=== PATIENT | male | born 1930 | race Caucasian/White ===

== ENCOUNTER → 2016-11-08 | Outpatient (CLI) | payer OTHER | LOC: BHFA 13:00 | PROVIDERS: ATTEND Internal Medicine Cardiovascular Disease | DX: I50.23 Acute on chronic systolic (congestive) heart failure (principal); I25.810 Atherosclerosis of coronary artery bypass graft(s) without angina pectoris; I48.91 Unspecified atrial fibrillation; N18.9 Chronic kidney disease, unspecified; R53.83 Other fatigue; R06.02 Shortness of breath | CPT/HCPCS: 84481-90 ==

== ENCOUNTER → 2016-11-25 | Outpatient (CLI) | payer OTHER | LOC: BHFA 10:00 | PROVIDERS: ATTEND Internal Medicine Cardiovascular Disease | DX: I50.9 Heart failure, unspecified (principal) ==

== ENCOUNTER 2016-12-07 10:47 | Observation (INO) | payer OTHER ==
[2016-12-07] MEDS ORDERED: BACITRACIN IRRIGATION/NS 50,000 UNITS/1,000 ML BTL IRR ONE (11:13)
[2016-12-07] MEDS ORDERED: NS 1,000 ML IV ONE (11:13)
[2016-12-07] MEDS ORDERED: DIAZEPAM 5 MG TAB PO ONE (11:13)
[2016-12-07] MEDS ORDERED: diphenhydrAMINE 25 MG CAP PO ONE (11:13)
[2016-12-07] MEDS ORDERED: ceFAZolin 2 GM/DEXTROSE 100 ML IV ONE (11:13)
--- NOTE | 2016-12-07 11:35 | CPEKG ---
Heart Rate: 60 RR Interval: 1000 P-R Interval: 204 QRSD Interval: 156 QT Interval: 520 QTC Interval: 520 P [place]: 27 QRS [place]: -84 T Wave [place]: 90 EKG Severity - ABNORMAL ECG - EKG Impression: ATRIAL-VENTRICULAR DUAL-PACED RHYTHM Electronically Signed By: Jon Borrero 07-Dec-2016 13:13:49
[2016-12-07 11:51] LABS: % IMMATURE GRANULYOCYTES 0.5 % (0.0-1.1); ABSOLUTE IMMATURE GRANULOCYTES 0.03 10^3/uL (0.00-0.10); ADD DIFF? NO; ADD MORPH? NO; ADD SCAN? NO; ATYPICAL LYMPHOCYTE FLAG 0 (0-99); FRAGMENT RBC FLAG 0 (0-99); HEMATOCRIT 42.1 % (40.0-51.0); HEMOGLOBIN 13.8 g/dL (13.7-17.5); LEFT SHIFT FLG 10 (0-99); LIPEMIA HEMOLYSIS FLAG 80 (0-99); MEAN CELL HEMOGLOBIN 31.9 pg (27.9-34.1); MEAN CELL HEMOGLOBIN CONCENTR. 32.8 g/dL (32.4-36.7); MEAN CELL VOLUME 97.5 fL (81.5-99.8); MEAN PLATELET VOLUME 11.2 fL (8.7-11.7); PLATELET CLUMPS FLAG 0 (0-99); PLATELET COUNT 110 10^3/uL (150-400); RED BLOOD CELL COUNT 4.32 10^6/uL (4.40-6.38); RED CELL DISTRIBUTION WIDTH 14.5 % (11.5-15.2)
[2016-12-07] MEDS ORDERED: BUPIVACAINE 0.5% 30 ML SDV ONE (11:55)
[2016-12-07] MEDS ORDERED: LIDOCAINE 1% 300 MG/30 ML SDV ONE (11:55)
[2016-12-07] MEDS ORDERED: IOPAMIDOL (ISOVUE-300) 100 ML BTL ONE (11:55)
[2016-12-07 12:00] LABS: INR 1.18 (0.83-1.16)
[2016-12-07 12:08] LABS: ANION GAP 9 mEq/L (8-16); CALCIUM 9.1 mg/dL (8.5-10.4); CARBON DIOXIDE 23 mEq/l (22-31); CHLORIDE 107 mEq/L (97-110); CREATININE 1.3 mg/dL (0.7-1.3); GLOMERULAR FILTRATION RATE 52; GLUCOSE 90 mg/dL (70-100); POTASSIUM 5.1 mEq/L (3.5-5.2); SODIUM 139 mEq/L (134-144)
[2016-12-07] MEDS ORDERED: PROPOFOL/EMULSION 500 MG/50 ML BOTTLE IV ONE (13:04)
[2016-12-07] MEDS ORDERED: fentaNYL 100 MCG/2 ML INJ ONE (13:05)
[2016-12-07] MEDS ORDERED: DEXMEDETOMIDINE HCL 200 MCG/2 ML VIAL IV ONE (13:06)
[2016-12-07] MEDS ORDERED: MIDAZOLAM 2 MG/2 ML VIAL ONE (13:14)
--- NOTE | 2016-12-07 15:38 | EPPROC ---
Electrophysiology Procedure Note: PROCEDURE PERFORMED: 1. Upgrade of A-V ICD to A-BiV ICD 2. Subclavian vein angiography 3. Fluoroscopy INDICATION: Existing A-V ICD Cardiomyopathy, NYHA Class III, non paced QRS duration 135 ms PROCEDURE NOTE: Patient presented to the cardiac catheterization laboratory in a fasting, postabsorptive state. Dr. Anurag Brown administered sedation. The left infraclavicular area was prepped and draped in the usual sterile fashion. Lidocaine plus bupivacaine was used for local anesthesia. Left subclavian venography was performed by injection of iodinated contrast into the left antecubital vein. 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 A Magic Torque wire was placed into the subclavian vein and easily crossed the stenosis. Using a combination of blunt and sharp dissection and electrocautery, the dissection was carried down to the prepectoral fascia. The existing ICD pocket was exposed. The wire was moved inferiorly into the ICD pocket. All bleeding was controlled with electrocautery. Fluoroscopy was utilized during the entire procedure for venous access and placement of the leads. A purse string suture was applied around the guide wire. Diagnostic testing of the existing leads was performed. Upon cessation of pacing the patient had sinus rhythm, first degree AV block and QRS duration of 135 ms. After using 7 and 9 Fr dilators, a 9 [place] sheath was advanced over the guide wire into the subclavian vein. The coronary sinus ostium was engaged. Given renal insufficiency we used only 5 cc of contrast to confirm CS sheath placement. A coronary sinus quadrapolar lead was advanced into the coronary sinus. An angioplasty wire was advanced through the lead and advanced into the mid portion of the lateral branch of the coronary sinus. The lead was advanced over the angioplasty wire. Pacing threshold, sensing and impedance was determined. There was no diaphragmatic stimulation at maximum output. The delivery system and the 9 Fr sheath were peeled away. Again, pacing threshold, sensing and impedance was determined. There was no diaphragmatic stimulation at maximum output. The CS lead was secured to the prepectoral fascia with 3nonabsorbablesutures. The lead did move more proximally during sheath removal and the most proximal electrode of the lead is in the main body of the CS. Pacing threshold and sensing parameters of the RA and RV leads were checked again. The gauze packing was removed from the pacemaker pocket. The pocket was again inspected for any bleeding. The leads were attached to the pacemaker securely. The pacemaker was inserted into the pocket and secured in place with a nonabsorbable suture. Fluoroscopy was performed in [place] and PABLO planes to verify right sided placement of the RA and RV leads. Also fluoroscopy of the pacemaker pocket was performed. Defibrillation threshold testing was not performed. The pacemaker pocket was closed in 3 layers with absorbable monocryl sutures and deya. Appropriate dressing was applied. The patient left the cardiac catheterization laboratory in stable condition. Defibrillation testing: Not performed Serial Numbers: 1. Device SJM Quadra Assura MP [id number] CRTD SN [id number] 2. Atrial Lead BoSci (Biotronik) 4135 SN [id number] 3. Right Ventricular Lead Bosci 0185 SN [id number] 4. Left Ventricular Lead SJM 1457Q 75 cm SN [id number] Stimulation Thresholds & Impedance Measurements: 1. Atrial Lead 0.75 V 0.5 ms P 1 mV 510 ohm 2. Right Ventricular Lead 1.25 V 0.5 ms R 5.2 mV 450 ohm 3. Left Ventricular Lead 1.25 V 1 ms R 20.5 mV 670 ohm (standard bipolar). Proximal electrodes do cause diaphragmatic stimulation at max output Jagdish Pacing Parameters: 1. Pacing mode DDDR 2. Lower rate 60 ppm 3. Upper rate 130 ppm Tachycardia therapy parameters: VF zone : Detection 200 bpm First therapy ATP x 3 Subsequent therapies 36 then 40 Joule VT zone : Detection 160 bpm ATP x 3 Second therapy 36 Joule Subsequent therapies 40 Joule Patient Problems: Problems Problem Status Onset Cardiomyopathy Acute Near syncope Acute
--- NOTE | 2016-12-07 15:42 | CPEKG ---
Heart Rate: 60 RR Interval: 1000 P-R Interval: 118 QRSD Interval: 162 QT Interval: 536 QTC Interval: 536 P [place]: 0 QRS [place]: 223 T Wave [place]: -22 EKG Severity - ABNORMAL ECG - EKG Impression: ATRIAL-VENTRICULAR DUAL-PACED RHYTHM Electronically Signed By: Jon Borrero 07-Dec-2016 17:19:54
[2016-12-07] MEDS ORDERED: ACETAMINOPHEN 325 MG TAB PO PRN (17:26)
[2016-12-07] MEDS ORDERED: SACUBITRIL/VALSARTAN 24/26MG 1 EA TAB PO SCH (21:00)
[2016-12-08 03:56] LABS: % IMMATURE GRANULYOCYTES 0.4 % (0.0-1.1); ABSOLUTE IMMATURE GRANULOCYTES 0.03 10^3/uL (0.00-0.10); ADD DIFF? NO; ADD MORPH? NO; ADD SCAN? NO; ATYPICAL LYMPHOCYTE FLAG 20 (0-99); FRAGMENT RBC FLAG 0 (0-99); HEMATOCRIT 37.3 % (40.0-51.0); HEMOGLOBIN 12.4 g/dL (13.7-17.5); LEFT SHIFT FLG 10 (0-99); LIPEMIA HEMOLYSIS FLAG 80 (0-99); MEAN CELL HEMOGLOBIN 32.2 pg (27.9-34.1); MEAN CELL HEMOGLOBIN CONCENTR. 33.2 g/dL (32.4-36.7); MEAN CELL VOLUME 96.9 fL (81.5-99.8); MEAN PLATELET VOLUME 11.2 fL (8.7-11.7); PLATELET CLUMPS FLAG 10 (0-99); PLATELET COUNT 102 10^3/uL (150-400); RED BLOOD CELL COUNT 3.85 10^6/uL (4.40-6.38); RED CELL DISTRIBUTION WIDTH 14.4 % (11.5-15.2)
[2016-12-08 04:48] LABS: ANION GAP 8 mEq/L (8-16); CALCIUM 8.4 mg/dL (8.5-10.4); CARBON DIOXIDE 20 mEq/l (22-31); CHLORIDE 108 mEq/L (97-110); CREATININE 1.1 mg/dL (0.7-1.3); GLOMERULAR FILTRATION RATE > 60; GLUCOSE 87 mg/dL (70-100); SODIUM 136 mEq/L (134-144)
[2016-12-08 07:28] VITALS: RESP 16; O2SAT 93
[2016-12-08] MEDS ORDERED: SPIRONOLACTONE 25 MG TAB PO SCH (09:00)
[2016-12-08] MEDS ORDERED: AMIODARONE HCL 200 MG TAB PO SCH (09:00)
[2016-12-08] MEDS ORDERED: ASPIRIN 81 MG CHEWABLE TAB PO SCH (09:00)
[2016-12-08] MEDS ORDERED: METOPROLOL TARTRATE 25 MG TAB PO SCH (09:00)
[2016-12-08] MEDS ORDERED: ATORVASTATIN CALCIUM 10 MG TAB PO SCH (09:00)
--- NOTE | 2016-12-08 09:07 | CPEKG ---
Heart Rate: 60 RR Interval: 1000 P-R Interval: 121 QRSD Interval: 172 QT Interval: 544 QTC Interval: 544 P [place]: 0 QRS [place]: 235 T Wave [place]: 215 EKG Severity - ABNORMAL ECG - EKG Impression: ATRIAL-VENTRICULAR DUAL-PACED RHYTHM Electronically Signed By: Jon Borrero 08-Dec-2016 13:58:57
[2016-12-08 11:42] VITALS: BP 98/60; PULSE 61; TEMP 97.8
--- NOTE | 2016-12-08 13:52 | ECHO ---
[id number] + + [address] : : [place] [address] : : [phone] + + Adult Echocardiographic Report + ---+ :Name: GULSHAN GONZALEZ Ghassancatia Date: 12/08/2016 10:32 AM : : Hospital Admission Number: [id number] Location: 204: :: 1930 Gender: Male Height: 65 in : :Age: 86 yrs Race: WH Weight: 110 lb : :Reason For Study: Eval LV Fx : : BSA: 1.5 meters2 : :History: Post AICD murmur : + ---+ MMode/2D Measurements \T\ Calculations IVSd: 0.95 cm LVIDd: 5.7 cm FS: 27.6 % Ao root diam: 3.4 cm LVPWd: 1.1 cm LVIDs: 4.1 cm EDV(Teich): 157.9 ml ACS: 1.6 cm ESV(Teich): 74.3 ml EF(Teich): 52.9 % LVOT diam: 2.1 cm LVOT area: 3.5 cm2 Normal Measurement Values: + + :LVIDd (3.5-5.7cm) IVSd (0.6-1.1cm) LVPWd (0.6-1.1cm) Aortic Root (2.0-3.7cm)Left Atrium (1.5-4.0cm): :LV Vol(d) (76-115ml) LV Vol(s) (29-48ml) Ejec Fraction (50-65%)PV Francisco (0.6- 1.2m/s) TV Francisco (0.4-1.0m/s) : :MV E Francisco (0.8-1.0m/s)MV A Francisco (0.3-1.0m/s)LVOT Francisco (0.7-1.2m/s) Asc Ao Francisco ( 0.9-1.8m/s) : + + Doppler Measurements \T\ Calculations MV E max francisco: MV V2 max: LV V1 max: SV(LVOT): 44.4 cm/sec 60.8 cm/sec 65.2 cm/sec 46.2 ml MV A max francisco: MV max P.5 mmHg LV V1 max P.2 cm/sec MV V2 mean: 1.7 mmHg MV E/A: 0.76 38.9 cm/sec LV V1 mean PG: MV mean P.0 mmHg 0.67 mmHg LV V1 mean: MV V2 VTI: 21.3 cm 45.1 cm/sec LV V1 VTI: 13.3 cm MVA(VTI): 2.2 cm2 TR max francisco: 316.3 cm/sec TR max P.0 mmHg RAP systole: 5.0 mmHg RVSP(TR): 45.0 mmHg Left Ventricle The left ventricle is normal in size. There is normal left ventricular wall thickness. Ejection Fraction = 40-45%. There is inferoseptal, inferolateral and apical hypokinesis. Right Ventricle There is a pacemaker lead in the right ventricle. The right ventricle is normal size. The right ventricular systolic function is normal. Atria The left atrium is moderately dilated. The right atrium is mildly dilated. Mitral Valve There is no mitral valve stenosis. There is mild mitral regurgitation. Tricuspid Valve There is moderate tricuspid regurgitation. Right ventricular systolic pressure is 45mmHg. There is Doppler evidence for mild pulmonary hypertension. Aortic Valve There is mild aortic valve calcification. The aortic valve is trileaflet. There is no aortic stenosis. Mild to moderate aortic regurgitation. Pulmonic Valve The pulmonic valve is normal in structure and function. There is no pulmonic valvular regurgitation. Great Vessels The aortic root is normal size. Pericardium/Pleural There is no pericardial effusion. Conclusion A complete two-dimensional transthoracic echocardiogram was performed (2D, M-mode, Doppler and color flow Doppler). Ejection Fraction = 40-45%. There is inferoseptal, inferolateral and apical hypokinesis. There is a pacemaker lead in the right ventricle. The left atrium is moderately dilated. There is no mitral valve stenosis. There is mild mitral regurgitation. There is moderate tricuspid regurgitation. Right ventricular systolic pressure is 45mmHg. There is Doppler evidence for mild pulmonary hypertension. There is mild aortic valve calcification. The aortic valve is trileaflet. Mild to moderate aortic regurgitation. There is no pericardial effusion. There was a murmur heard on the right side. Doppler and colorflow doppler was performed with the leg cuffs inflated and deflated to obtain information on the tricuspid murmur. There was no noticable difference in the TR jet and the pacer lead remained stable and inplace during the cuff inflation. Compared with 07/10/2015, LV systolic function has improved. Degree of AR has progressed slightly Final Reading Physician: Dr Reena Milton electronically signed on 12/08/2016 01:51 PM Ordering Physician: Jon Borrero Performed By: Justin Meza, NAINCS
--- NOTE | 2016-12-09 04:51 | GDS ---
[f rep st] DISCHARGE SUMMARY ADMITTING DIAGNOSES: 1. Chronic systolic congestive heart failure, [place] [employer] Class III symptoms. 2. Previous ICD implanted. 3. Paroxysmal atrial fibrillation. 4. Chronic obstructive pulmonary disease. 5. Poliomyelitis. DISCHARGE DIAGNOSES: 1. Chronic systolic congestive heart failure, [place] [employer] Class III symptoms. 2. Previous ICD implanted. 3. Paroxysmal atrial fibrillation. 4. Chronic obstructive pulmonary disease. 5. Poliomyelitis. 6. Upgrade to biventricular ICD. BRIEF HISTORY: This is an 86-year-old man with a history of chronic systolic CHF with ejection fraction previously of 20% and [place] Heart [employer] class III symptoms with a QRS of 135 milliseconds. He had been in atrial flutter for 4 months previously. He had been experiencing increased CUEVAS. Recommendations were for upgrade to biventricular ICD. HOSPITAL COURSE: Dr. Borrero implanted a [employer] Quadra Assura MP biventricular ICD. The LV lead is a [employer] 1457Q. The previously placed right atrial and right ventricular leads are [employer]. Mode is DDDR with a base rate of 60 and upper rate of 130 beats per minute. Prior to discharge, atrial capture threshold was 0.5 V at 0.5 milliseconds with P waves of 1 mV and impedance 460 ohms. RV capture threshold was 1 V at 0.5 milliseconds, R wave 6.5 mV, impedance 480 ohms. LV capture threshold is 1.5 V at 0.5 milliseconds. This is the M2 to P4. Impedance is 660 ohms. Patient did well overnight. He denies any tenderness or pain at his ICD site. He denies shortness of breath or chest pain. In fact, he is feeling well today. He did not have any significant arrhythmias on the monitor. Chest x-ray demonstrated no pneumothorax. EKG demonstrates AV pacing at 60 beats per minute. LABORATORY DATA: WBC 7.85, hemoglobin 12.4, hematocrit 37.3, platelets 102, 000. PT 15, INR 1.18. Sodium 136, potassium 5.0, chloride 108, bicarb 20, BUN 24, creatinine 1.1, glucose 87. Echocardiogram: Ejection fraction increased to 40% to 45%. Mild MR. Moderate TR. Estimated RVSP is 45 mmHg. [id number] AI and no pericardial effusion. PHYSICAL EXAMINATION: VITAL SIGNS: Blood pressure is 89/53, pulse 60, respirations 16, temperature is 37.1, O2 saturation on room air is 93%. GENERAL : He is alert and oriented, in no acute distress, lying in bed. CARDIAC: Regular rate and rhythm with a 2/6 musical vibratory murmur at base, which was not heard later when he was sitting up in a chair. LUNGS: Have decreased breath sounds bilaterally at bases. ABDOMEN: Soft and nontender. PACEMAKER SITE: Gauze dressing is intact without dry blood. EXTREMITIES: Warm. No lower extremity edema. Left hand is chronically bluish purple. DISCHARGE MEDICATIONS: Please see discharge medication reconciliation form. Of note, he does take Xarelto half a tablet every other day, and he was instructed to resume that on the evening of the . DISCHARGE INSTRUCTIONS: Provided a written sheet for him with post pacemaker implant restrictions that were reviewed with patient and his . FOLLOWUP: He has a followup for a pacemaker check and wound check on 12/15 at 11 o'clock. He has a followup with Dr. De Anda on 12/31 at 9:30. /[id number]/MODL MTDD
== END 2016-12-08 16:06 | disposition home or self-care (01) ==
LOC: F2W 10:47 → UNDOADMOB 10:47 → FCATH 10:47 → EDSTATUS 13:00 → F2W 15:26
PROVIDERS: ADMIT Internal Medicine Cardiovascular Disease; ATTEND Internal Medicine Cardiovascular Disease
PROC: 0JPT3PZ Removal of Cardiac Rhythm Related Device from Trunk Subcutaneous Tissue and Fascia, Percutaneous Approach (ICD-10-PCS; principal; 2016-12-07)
PROC: 5A2204Z Restoration of Cardiac Rhythm, Single (ICD-10-PCS; principal; 2016-12-07)
PROC: 0JH639Z Insertion of Cardiac Resynchronization Defibrillator Pulse Generator into Chest Subcutaneous Tissue and Fascia, Percutaneous Approach (ICD-10-PCS; principal; 2016-12-07)
PROC: 02H43KZ Insertion of Defibrillator Lead into Coronary Vein, Percutaneous Approach (ICD-10-PCS; principal; 2016-12-07)
DX: I25.5 Ischemic cardiomyopathy (principal); I50.22 Chronic systolic (congestive) heart failure; I48.0 Paroxysmal atrial fibrillation; R55 Syncope and collapse; N18.9 Chronic kidney disease, unspecified; J44.9 Chronic obstructive pulmonary disease, unspecified; A80.9 Acute poliomyelitis, unspecified; I25.2 Old myocardial infarction; Z79.01 Long term (current) use of anticoagulants; Z85.46 Personal history of malignant neoplasm of prostate; Z82.49 Family history of ischemic heart disease and other diseases of the circulatory system; Z95.1 Presence of aortocoronary bypass graft
CPT/HCPCS: 33225; 33233; 33249; 71010; 71020; 92610; 93005; 93306; 97116; 97161; C1769; C1882; C1900; G8978; G8979; G8980; G8996; G8997; G8998; J0690; J2250; J2704; J3010; Q9967